=== PATIENT | male | born 1990 | race Two or more races ===

== ENCOUNTER 2016-03-18 09:34 | Inpatient (IN) | payer BC ==
[2016-03-18] VITALS (10 sets, daily range): BP systolic 117–156; BP diastolic 50–77
[~2016-03-18] VITALS: Ht 175.3 cm; Wt 81.6 kg
[2016-03-18] MEDS ORDERED: NKM (09:50)
[2016-03-18] MEDS ORDERED: Ketorolac 30mg Inj IV ONE (10:30)
[2016-03-18] MEDS ORDERED: Tubing IV Cassette IV ONE (10:35)
--- NOTE | 2016-03-18 10:36 | Emergency Room Report ---
History of Present Illness General Chief Complaint: Abdominal Pain Source: Patient Present Illness HPI Patient presents with complaints of right lower quadrant abdominal pain Ongoing for the past 2 hours Patient reports waking up this morning to the sharp pain 8/10 Denies any blood in the urine denies any chest pain or shortness of breath there is a flank component with this as well Denies any fevers denies any recent trauma Does not associate the pain with position Allergies: Coded Allergies: No Known Allergies (Unverified , 03/18/16) Patient History Past Medical History: see triage record Pertinent Family History: none Reviewed Nursing Documentation: PMH: Agreed, PSxH: Agreed Nursing Documentation-PM Past Medical History: No Stated History Review of Systems All Other Systems: negative except mentioned in HPI Physical Exam Vital Signs Date Time Temp Pulse Resp B/P Pulse Ox O2 Delivery O2 Flow Rate FiO2 03/18/16 09:46 98.2 84 18 130/72 100 Room Air Sp02 EP Interpretation: reviewed, normal General Appearance: well appearing, no apparent distress Head: normocephalic, atraumatic Eyes: bilateral eye EOMI, bilateral eye PERRL ENT: hearing grossly normal, normal pharynx, TMs + canals normal, uvula midline Neck: full range of motion, supple, no meningismus, no bony tend Respiratory: lungs clear, normal breath sounds, no rhonchi, no respiratory distress, no retraction, no accessory muscle use Cardiovascular #1: normal peripheral pulses, regular rate, rhythm, no edema, no gallop, no JVD, no murmur Gastrointestinal: normal bowel sounds, soft, no mass, no organomegaly, non- distended, no guarding, no hernia, no pulsatile mass, no rebound, other - Tender on that right lower quadrant Genitourinary: no CVA tenderness Musculoskeletal: normal inspection Neurologic: oriented x3, responsive, oxygen tank filler III-XII nml as tested, motor strength/ tone normal, sensory intact Psychiatric: mood/affect normal Skin: normal color, no rash, warm/dry, palpation normal Lymphatic: normal inspection, no adenopathy Medical Decision Making Diagnostic Impression: Primary Impression: Acute appendicitis ER Course With the history exam and presentation, multiple differentials considered, including but not limited to appendicitis, gastritis, cholecystitis, diverticulitis Patient's witlessly count is mildly elevated CT scan at this time did reveal evidence of likely early appendicitis Patient has been provided with IV antibiotics further hydration N.p.o. status and admitted for further care Labs Test 03/18/16 10:25 White Blood Count 13.4 K/UL (4.8-10.8) Red Blood Count 6.04 M/UL (4.70-6.10) Hemoglobin 13.8 G/DL (14.2-18.0) Hematocrit 44.7 % (42.0-52.0) Mean Corpuscular Volume 74 FL (80-99) Mean Corpuscular Hemoglobin 22.8 PG (27.0-31.0) Mean Corpuscular Hemoglobin Concent 30.8 G/DL (32.0-36.0) Red Cell Distribution Width 13.1 % (11.6-14.8) Platelet Count 295 K/UL (150-450) Mean Platelet Volume 6.5 FL (6.5-10.1) Neutrophils (%) (Auto) 83.0 % (45.0-75.0) Lymphocytes (%) (Auto) 9.1 % (20.0-45.0) Monocytes (%) (Auto) 6.8 % (1.0-10.0) Eosinophils (%) (Auto) 0.7 % (0.0-3.0) Basophils (%) (Auto) 0.4 % (0.0-2.0) Urine Color Pale yellow Urine Appearance Clear Urine pH 6 (4.5-8.0) Urine Specific [place] 1.015 (1.005-1.035) Urine Protein Negative (NEGATIVE) Urine Glucose (UA) Negative (NEGATIVE) Urine Ketones 2+ (NEGATIVE) Urine Occult Blood Negative (NEGATIVE) Urine Nitrite Negative (NEGATIVE) Urine Bilirubin Negative (NEGATIVE) Urine Urobilinogen Normal MG/DL (0.0-1.0) Urine Leukocyte Esterase Negative (NEGATIVE) Sodium Level 140 mEQ/L (135-145) Potassium Level 4.2 mEQ/L (3.4-4.9) Chloride Level 99 mEQ/L (98-107) Carbon Dioxide Level 26 mEQ/L (20-30) Anion Gap 15 (5-15) Blood Urea Nitrogen 12 mg/dL (7-23) Creatinine 1.1 mg/dL (0.7-1.2) Estimat Glomerular Filtration Rate > 60 mL/min (>60) Glucose Level 104 mg/dL (74-106) Calcium Level 9.2 mg/dL (8.6-10.2) Total Bilirubin 0.4 mg/dL (0.0-1.2) Aspartate Amino Transf (AST/SGOT) 28 U/L (5-40) Alanine Aminotransferase (ALT/SGPT) 21 U/L (3-41) Alkaline Phosphatase 44 U/L (40-129) Total Protein 6.8 g/dL (6.6-8.7) Albumin 4.4 g/dL (3.5-5.2) Globulin 2.4 g/dL Albumin/Globulin Ratio 1.8 (1.0-2.7) Lipase 26 U/L (< 60) CT/MRI/US Diagnostic Results CT/MRI/US Diagnostic Results : Impression CT abdomen pelvis: Findings in line with early appendicitis Last Vital Signs Date Time Temp Pulse Resp B/P Pulse Ox O2 Delivery O2 Flow Rate FiO2 03/18/16 09:46 98.2 84 18 130/72 100 Room Air Status: improved Disposition: ADMITTED INPATIENT Condition: Serious Referrals: NOT CHOSEN JHONNY/,REFERRING (PCP) MAO LONDONO D.O. Mar 18, 2016 10:36
[2016-03-18 10:40] LABS: APPEARANCE,URINE CLEAR; KETONES,URINE 2+ (NEGATIVE); LEUKOCYTE ESTERASE ,URINE NEGATIVE (NEGATIVE); NITRITE,URINE NEGATIVE (NEGATIVE); PH,URINE 6 (4.5-8.0); PROTEIN,URINE NEGATIVE (NEGATIVE); UROBILINOGEN,URINE NORMAL MG/DL (0.0-1.0)
[2016-03-18 10:48] LABS: BASOPHILS % (AUTO) 0.4 % (0.0-2.0); EOSINOPHILS % (AUTO) 0.7 % (0.0-3.0); LYMPHOCYTES % (AUTO) 9.1 % (20.0-45.0); MEAN CORPUSCULAR HEMOGLOBIN 22.8 PG (27.0-31.0); MEAN CORPUSCULAR HGB CONC 30.8 G/DL (32.0-36.0); MEAN CORPUSCULAR VOLUME 74 FL (80-99); MEAN PLATELET VOLUME 6.5 FL (6.5-10.1); MONOCYTES % (AUTO) 6.8 % (1.0-10.0); PLATELET COUNT 295 K/UL (150-450); RED BLOOD COUNT 6.04 M/UL (4.70-6.10); RED CELL DISTRIBUTION WIDTH 13.1 % (11.6-14.8); WHITE BLOOD COUNT 13.4 K/UL (4.8-10.8)
[2016-03-18 11:00] LABS: ALANINE AMINOTRANSFERASE 21 U/L (3-41); ALBUMIN/GLOBULIN RATIO 1.8 (1.0-2.7); ANION GAP 15 (5-15); ASPARTATE AMINO TRANSFERASE 28 U/L (5-40); CALCIUM 9.2 mg/dL (8.6-10.2); CARBON DIOXIDE 26 mEQ/L (20-30); CHLORIDE 99 mEQ/L (98-107); CREATININE 1.1 mg/dL (0.7-1.2); GLOMERULAR FILTRATION RATE > 60 mL/min (>60); HEMOLYSIS 5; LIPASE 26 U/L (< 60); POTASSIUM 4.2 mEQ/L (3.4-4.9); SODIUM 140 mEQ/L (135-145); TOTAL PROTEIN 6.8 g/dL (6.6-8.7)
--- NOTE | 2016-03-18 11:49 | Diagnostic Imaging Report ---
Indication: Abdominal pain Technique: Continuous helical transaxial imaging of the abdomen and pelvis was obtained from the lung bases to the pubic symphysis during intravenous contrast administration. Coronal 2-D reformats were also obtained. Study obtained in a Siemens sensation [address] Total Dose length Product (DLP): [address] Dose Index Volume (CTDIvol): 16 mGy Comparison: None Findings: The lung bases are clear. There are some breathing motion artifact present. No abnormalities of the gallbladder, liver or spleen, pancreas, or kidneys identified. There is no adrenal mass identified. The appendix is retrocecal. There is some enhancement of the wall the appendix. Periappendiceal fat appears abnormal suggestive of inflammation. Appendiceal diameter is only minimally enlarged measuring about 7-8 mm. Findings are suspicious for early acute appendicitis ( CTs images 51 through 54, series 3). There is no abscess. There is no free fluid identified. Impression: Suspected acute early appendicitis. The appendix is retrocecal. Breathing motion artifacts. The CT scanner at [facility] is accredited by the [employer] and the scans are performed using protocols designed to limit radiation exposure to as low as reasonably achievable to attain images of sufficient resolution adequate for diagnostic evaluation.
[2016-03-18] MEDS ORDERED: Zosyn 3.375gm inj ONE (12:00)
[2016-03-18] MEDS ORDERED: NS 110 ML ONE (12:00)
[2016-03-18] MEDS ORDERED: Piperacillin/Tazobactam 3.375 GM in NS 110 ML IVPB ONE (12:00)
[2016-03-18] MEDS ORDERED: HYDROmorphone 1mg/ml Carpuject IVP PRN ×2 (13:45→18:00)
[2016-03-18] MEDS ORDERED: Hydromorphone 0.5mg/0.5ml inj IVP PRN ×3 (13:45→18:00)
--- NOTE | 2016-03-18 13:50 | History and Physical ---
History of Present Illness General Date patient seen: Mar 18, 2016 Time patient seen: 13:45 Reason for Hospitalization: Abdominal Pain Present Illness HPI 25 yo M presents with complaints of right lower quadrant abdominal pain, ongoing for the past 2 hours. Patient reports waking up this morning to the sharp pain, 8/10, located in LLQ. Denies any blood in the urine denies any chest pain or shortness of breath. Denies any fevers denies any recent trauma. Does not associate the pain with position. Allergies: Coded Allergies: No Known Allergies (Unverified , 03/18/16) Medication History Scheduled No Known Medications* (NKM - No Known Medications*), 0 ., (Reported) Scheduled PRN Acetaminophen With Codeine (T#3) (Tylenol #3 Tab*), 1 TAB ORAL Q4H PRN for For Pain, (Reported) Acetaminophen With Codeine (T#3) (Tylenol #3 Tab*), 2 TAB ORAL Q4HR PRN for For Pain, (Reported) Patient History Healthcare decision maker Resuscitation status Advanced Directive on File Past Medical/Surgical History Past Medical/Surgical History: (1) No pertinent past medical history (2) No significant past medical history (3) No significant past surgical history Family History Family History: Patient reports no known family medical history. Social History Social History: (1) No significant social history Review of Systems All Other Systems: negative except mentioned in HPI Physical Exam General Appearance: no apparent distress, alert HEENT: normocephalic, atraumatic, anicteric, mucous membranes moist, PERRL, EOMI, pharynx normal, no JVD Neck: non-tender, supple Respiratory/Chest: lungs clear, normal breath sounds, no respiratory distress, no accessory muscle use Cardiovascular/Chest: normal peripheral pulses, normal rate, regular rhythm Abdomen: normal bowel sounds, non tender, soft, no mass, tender - RLQ Extremities: non-tender, normal inspection Skin Exam: warm/dry 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, no motor/sensory deficits, alert Musculoskeletal: normal muscle bulk Last 24 Hour Vital Signs Date Time Temp Pulse Resp B/P Pulse Ox O2 Delivery O2 Flow Rate FiO2 03/18/16 12:15 97.2 67 16 125/62 99 Room Air 03/18/16 11:00 98.3 03/18/16 09:46 98.2 84 18 130/72 100 Room Air Laboratory Tests Test 03/18/16 10:25 White Blood Count 13.4 K/UL (4.8-10.8) H Red Blood Count 6.04 M/UL (4.70-6.10) Hemoglobin 13.8 G/DL (14.2-18.0) L Hematocrit 44.7 % (42.0-52.0) Mean Corpuscular Volume 74 FL (80-99) L Mean Corpuscular Hemoglobin 22.8 PG (27.0-31.0) L Mean Corpuscular Hemoglobin Concent 30.8 G/DL (32.0-36.0) L Red Cell Distribution Width 13.1 % (11.6-14.8) Platelet Count 295 K/UL (150-450) Mean Platelet Volume 6.5 FL (6.5-10.1) Neutrophils (%) (Auto) 83.0 % (45.0-75.0) H Lymphocytes (%) (Auto) 9.1 % (20.0-45.0) L Monocytes (%) (Auto) 6.8 % (1.0-10.0) Eosinophils (%) (Auto) 0.7 % (0.0-3.0) Basophils (%) (Auto) 0.4 % (0.0-2.0) Urine Color Pale yellow Urine Appearance Clear Urine pH 6 (4.5-8.0) Urine Specific [place] 1.015 (1.005-1.035) Urine Protein Negative (NEGATIVE) Urine Glucose (UA) Negative (NEGATIVE) Urine Ketones 2+ (NEGATIVE) H Urine Occult Blood Negative (NEGATIVE) Urine Nitrite Negative (NEGATIVE) Urine Bilirubin Negative (NEGATIVE) Urine Urobilinogen Normal MG/DL (0.0-1.0) Urine Leukocyte Esterase Negative (NEGATIVE) Sodium Level 140 mEQ/L (135-145) Potassium Level 4.2 mEQ/L (3.4-4.9) Chloride Level 99 mEQ/L (98-107) Carbon Dioxide Level 26 mEQ/L (20-30) Anion Gap 15 (5-15) Blood Urea Nitrogen 12 mg/dL (7-23) Creatinine 1.1 mg/dL (0.7-1.2) Estimat Glomerular Filtration Rate > 60 mL/min (>60) Glucose Level 104 mg/dL (74-106) Calcium Level 9.2 mg/dL (8.6-10.2) Total Bilirubin 0.4 mg/dL (0.0-1.2) Aspartate Amino Transf (AST/SGOT) 28 U/L (5-40) Alanine Aminotransferase (ALT/SGPT) 21 U/L (3-41) Alkaline Phosphatase 44 U/L (40-129) Total Protein 6.8 g/dL (6.6-8.7) Albumin 4.4 g/dL (3.5-5.2) Globulin 2.4 g/dL Albumin/Globulin Ratio 1.8 (1.0-2.7) Lipase 26 U/L (< 60) Height (Feet): 5 Height (Inches): 9.00 Weight (Pounds): 180 Medications Current Medications Medications (Trade) Dose Ordered Sig/[place] Route PRN Reason Start Time Stop Time Status Last Admin Dose Admin Acetaminophen (Tylenol) 650 mg Q4H PRN ORAL fever 03/18/16 13:45 04/17/16 13:44 UNV Dextrose STAT PRN IV Hypoglycemia 03/18/16 13:45 04/17/16 13:44 UNV Dextrose/Sodium Chloride (D5 0.45% NS) 1,000 ml @ 75 mls/hr [id number] IV 03/18/16 14:36 04/17/16 14:35 UNV Hydromorphone HCl (Dilaudid) 0.5 mg EVERY 4 HOURS PRN IVP For Pain 03/18/16 13:45 03/25/16 13:44 UNV Hydromorphone HCl (Dilaudid) 1 mg EVERY 4 HOURS PRN IVP Severe Pain (Pain Scale 7-10) 03/18/16 13:45 03/25/16 13:44 UNV Ondansetron HCl (Zofran) 4 mg Q6H PRN IVP Nausea & Vomiting 03/18/16 13:45 04/17/16 13:44 UNV Piperacillin Sod/ Tazobactam Sod/ Dextrose (Zosyn/D5W) 110 ml @ 27.5 mls/hr EVERY 8 HOURS IVPB 03/18/16 14:00 03/23/16 13:59 UNV Prochlorperazine (Compazine) 10 mg Q6H PRN IVP Nausea & Vomiting 03/18/16 13:45 04/17/16 13:44 UNV Assessment/Plan Problem List: (1) Acute appendicitis ICD Codes: K35.80 - Unspecified acute appendicitis SNOMED: [id number] Status: progressing Assessment/Plan pain control with Dil IV Tylenol prn fever npo D5 1/2 ns zosyn Gen surg c/s for appendectomy SCD admit inpt med surg Raven Vargas M.D. Mar 18, 2016 13:49
[2016-03-18] MEDS ORDERED: Propofol 10mg/ml 20ml IV ONE ×2 (14:03→16:45)
[2016-03-18] MEDS ORDERED: D5 1/2NS 1,000 ML IV SCH (14:36)
[2016-03-18] MEDS ORDERED: Surgicel 4in x 8in TOPIC ONE (16:22)
[2016-03-18] MEDS ORDERED: Bupivacaine w/Epi 0.25% 30ml Vial INJ ONE (16:22)
--- NOTE | 2016-03-18 16:31 | Pre-Procedure Note/Attestation ---
Pre-Procedure Note/Attestation Complete Prior to Procedure Procedure Narrative: laparoscopic appendectomy Indications for Procedure Pre-Operative Diagnosis: acute appendicitis Attestation I attest that I discussed the nature of the procedure; its benefits; risks and complications; and alternatives (and the risks and benefits of such alternatives ), prior to the procedure, with the patient (or the patient's legal site safety representative). I attest that, if there was a reasonable possibility of needing a blood transfusion, the patient (or the patient's legal site safety representative) was given the [facility] standardized written summary, pursuant to the Art Cutler Blood Safety Act ([place] Health and Safety Code # 1645, as amended). I attest that I re-evaluated the patient just prior to the surgery and that there has been no change in the patient's H&P, except as documented below: GARCIA GAMEZ Mar 18, 2016 16:31
[2016-03-18] MEDS ORDERED: Succinylcholine 20mg/ml 10ml vial ONE (16:45)
[2016-03-18] MEDS ORDERED: Glycopyrrolate 0.2mg/ml 1ml Vial ONE (16:45)
[2016-03-18] MEDS ORDERED: Neostigmine 1mg/ml 10ml Inj ONE (16:45)
[2016-03-18] MEDS ORDERED: Sterile Water Irrig 1000ml IRRIG ONE (16:45)
[2016-03-18] MEDS ORDERED: NS Irrig 1000ml IRRIG ONE (16:45)
[2016-03-18] MEDS ORDERED: Midazolam 2mg/2ml Inj ONE (16:45)
[2016-03-18] MEDS ORDERED: NS Irrig 1000ml ONE (16:45)
[2016-03-18] MEDS ORDERED: fentaNYL 100 mcg/2 mL IV ONE (16:45)
[2016-03-18] MEDS ORDERED: Ketorolac 30mg Inj ONE (16:45)
[2016-03-18] MEDS ORDERED: Zemuron 50mg/5ml Inj IV ONE (16:45)
[2016-03-18] MEDS ORDERED: LR 1000ml ONE (16:45)
[2016-03-18] MEDS ORDERED: LR 1000ml 1,000 ML IVLG SCH (17:31)
--- NOTE | 2016-03-18 17:31 | Anethesia Preoperative Eval ---
Anesthesia Pre-op PMH/ROS General Date of Evaluation: Mar 18, 2016 Time of Evaluation: 16:40 Anesthesiologist: Emory ASA Score: ASA 2 Mallampati Score Class I : Soft palate, uvula, fauces, pillars visible Class II: Soft palate, uvula, fauces visible Class III: Soft palate, base of uvula visible Class IV: Only hard plate visible Mallampati Classification: Class II Surgeon: Joslyn Diagnosis: Acute appendicitis Surgical Procedure: Laparoscopic appendectomy Anesthesia History: none Family History: no anesthesia problems Allergies: Coded Allergies: No Known Allergies (Unverified , 03/18/16) Past Medical History Cardiovascular: Denies: CAD, HTN, [place], arrhythmia, other, valve dz Pulmonary: Denies: COPD, MIRNA, asthma, other Gastrointestinal/Genitourinary: Denies: CRI, ESRD, GERD, other Neurologic/Psychiatric: Denies: CVA, TIA, dementia, depression/anxiety, other Endocrine: Denies: DM, hypothyroidism, other, steroids HEENT: Denies: [place] (L), [place] (R), cataract (L), cataract (R), glaucoma, other Hematology/Immune: Denies: DVT, anemia, bleeding disorder, other Musculoskeletal/Integumentary: Denies: DDD, DJD, OA, RA, edema, other PMH Narrative: admitted for acute abdominal pain nausea vomiting PSxH Narrative: None Anesthesia Pre-op Phys. Exam Physician Exam Last Vital Signs Date Time Temp Pulse Resp B/P Pulse Ox O2 Delivery O2 Flow Rate FiO2 03/18/16 16:00 97.0 50 20 117/51 98 Room Air Constitutional: NAD Neurologic: CN 2-12 intact Cardiovascular: RRR, no M/R/G Respiratory: CTA Gastrointestinal: other - tender on palpation Airway Exam Mallampati Score: Class II MO: full Neck: flexivble ROM: full Teeth: intact Dentures: no lower, no upper Anesthesia Pre-op A/P Labs Hematology Test 03/18/16 10:25 White Blood Count 13.4 K/UL (4.8-10.8) H Red Blood Count 6.04 M/UL (4.70-6.10) Hemoglobin 13.8 G/DL (14.2-18.0) L Hematocrit 44.7 % (42.0-52.0) Mean Corpuscular Volume 74 FL (80-99) L Mean Corpuscular Hemoglobin 22.8 PG (27.0-31.0) L Mean Corpuscular Hemoglobin Concent 30.8 G/DL (32.0-36.0) L Red Cell Distribution Width 13.1 % (11.6-14.8) Platelet Count 295 K/UL (150-450) Mean Platelet Volume 6.5 FL (6.5-10.1) Neutrophils (%) (Auto) 83.0 % (45.0-75.0) H Lymphocytes (%) (Auto) 9.1 % (20.0-45.0) L Monocytes (%) (Auto) 6.8 % (1.0-10.0) Eosinophils (%) (Auto) 0.7 % (0.0-3.0) Basophils (%) (Auto) 0.4 % (0.0-2.0) Chemistry Test 03/18/16 10:25 Sodium Level 140 mEQ/L (135-145) Potassium Level 4.2 mEQ/L (3.4-4.9) Chloride Level 99 mEQ/L (98-107) Carbon Dioxide Level 26 mEQ/L (20-30) Anion Gap 15 (5-15) Blood Urea Nitrogen 12 mg/dL (7-23) Creatinine 1.1 mg/dL (0.7-1.2) Estimat Glomerular Filtration Rate > 60 mL/min (>60) Glucose Level 104 mg/dL (74-106) Calcium Level 9.2 mg/dL (8.6-10.2) Total Bilirubin 0.4 mg/dL (0.0-1.2) Aspartate Amino Transf (AST/SGOT) 28 U/L (5-40) Alanine Aminotransferase (ALT/SGPT) 21 U/L (3-41) Alkaline Phosphatase 44 U/L (40-129) Total Protein 6.8 g/dL (6.6-8.7) Albumin 4.4 g/dL (3.5-5.2) Globulin 2.4 g/dL Albumin/Globulin Ratio 1.8 (1.0-2.7) Lipase 26 U/L (< 60) Risk Assessment & Plan Assessment: ASA 2 Plan: GA with ETT Status Change Before Surgery: No Pre-Antibiotics Drug: Ancef 2gr. Given Within 1 Hr of Incision: Yes Time Given: 17:02 JOSÉ MIGUEL RAMOS M.D. Mar 18, 2016 17:31
[2016-03-18] MEDS ORDERED: Metoclopramide 10mg/2ml Inj IVP PRN (17:45)
[2016-03-18] MEDS ORDERED: DiphenhydrAMINE 50mg/ml Inj IVP PRN ×2 (17:45→18:00)
[2016-03-18] MEDS ORDERED: Meperidine 25mg/ml Inj IV PRN (17:45)
[2016-03-18] MEDS ORDERED: Ketorolac 30mg Inj IV PRN (17:45)
--- NOTE | 2016-03-18 17:49 | Brief Operative Note ---
Immediate Post Operative Note Operative Note Pre-op Diagnosis: acute appendicitis Procedure: laparoscopic appendectomy Post-op Diagnosis: same as pre-op Surgeon: leidy Anesthesiologist: hui Anesthesia: general Specimen: yes Complications: none Condition: stable Estimated Blood Loss: minimal Drains: none Implant(s) used?: No GARCIA GAMEZ Mar 18, 2016 17:49
[2016-03-18] MEDS ORDERED: Ketorolac 30mg Inj IM PRN (18:00)
[2016-03-18] MEDS ORDERED: Norco 5mg/325mg tab ORAL PRN (18:00)
--- NOTE | 2016-03-18 18:06 | Immediate Post-Op Evaluation ---
Immediate Post-Op Evalulation Immediate Post-Op Evalulation Procedure: Laparoscopic appendectomy Date of Evaluation: Mar 18, 2016 Time of Evaluation: 18:05 IV Fluids: 1000 Blood Products: none Estimated Blood Loss: min Urinary Output: 80 Blood Pressure Systolic: 120 Blood Pressure Diastolic: 56 Pulse Rate: 84 Respiratory Rate: 20 O2 Sat by Pulse Oximetry: 99 Temperature (Fahrenheit): 97.6 Pain Score (1-10): 1 Nausea: No Vomiting: No Complications none Patient Status: reacts, patent, extubated, none Hydration Status: adequate JOSÉ MIGUEL RAMOS M.D. Mar 18, 2016 18:06
[2016-03-18] MEDS ORDERED: Piperacillin/Tazobactam 3.375 GM in D5W 110 ML IVPB SCH (20:00)
[2016-03-18] MEDS ORDERED: cefOXitin Sod 1 GM in D5W 55 ML IV SCH (20:30)
[2016-03-18] MEDS: D5 1/2NS w/KCl 20mEq 1,000 ML IV SCH (21:16)
[2016-03-18] MEDS: cefOXitin Sod 1 GM in D5W 55 ML IV SCH (23:13)
[2016-03-18] MEDS: Norco 10mg/325mg tab ORAL PRN (23:58)
[2016-03-19] VITALS: BP 116/62
--- NOTE | 2016-03-19 02:27 | Operative Note - Dictated ---
DATE OF OPERATION: 03/18/2016 SURGEON: Holland Jorgensen M.D. ORDNANCE EQUIPMENT WORKER SURGEON: Jacinto Guaman M.D. ANESTHESIOLOGIST: Jamel Cat M.D. ANESTHESIA: General endotracheal tube. PREOPERATIVE DIAGNOSIS: Acute appendicitis. POSTOPERATIVE DIAGNOSIS: Acute appendicitis. NAME OF THE OPERATION: Laparoscopic appendectomy. FINDINGS AND INDICATIONS: The patient is a 25-year-old male, originally from [place], who comes to the emergency room from [place] the [address] [place] he [place], with complaints of initial abdominal pain in the mid abdomen, migrating to the right lower quadrant over the course of this morning since 0530 a.m. He was evaluated by the emergency room physician for right lower quadrant tenderness and CAT scan of the abdomen revealed changes consistent with acute appendicitis. As the primary operation a thickened nonperforated appendix was found. No obvious nor any inflammatory fluid with early acute appendicitis, which was taken care of relatively easy with laparoscopic appendectomy. There was a small umbilical hernia, which was repaired through the same infraumbilical orifice at the end of the procedure. DESCRIPTION OF PROCEDURE: With the patient lying in the supine position on the operating table, under general anesthesia, the entire abdominal region, prepped and draped in usual sterile fashion with Betadine. An infraumbilical stab incision was made. The Veress needle was introduced and 3.5 liters of CO2 insufflated. The incision was then enlarged and a 5 mm trocar was placed through which a laparoscope was placed visualizing the above findings. A separate suprapubic 1.2 cm trocar was placed and a 5 mm trocar in the left upper quadrant through which the appendix was grasped, and it was placed on traction and a careful dissection was undertaken around the base of the appendix and the mesoappendix, which was carefully mobilized and a window created in the lateral aspect of the appendix. The Endo-KAYDEN staple device was then used to transect it. At this point, the mesoappendix was also carefully dissected free off of the cecum and the Endo-KAYDEN staple was also used to transect it with excellent hemostasis. The area was irrigated. Hemostasis was double checked which was adequate with the cautery, and at this point making sure there was no further bleeding and having irrigated the entire right gutter, right lower quadrant and hepatic area, the CO2 was deflated. The trocars were removed and the incision was closed with 0 Vicryl fascial sutures, except for the small umbilical hernia with trocars at the place, which was closed with a figure-of- eight 2-0 Ethibond suture. Hemostasis was excellent. Subcutaneous tissues were approximated with 3-0 Vicryl suture, and skin with 4-0 Vicryl subcuticular sutures and Steri-Strips. The suprapubic wound was also closed on the fascia with 0 Vicryl suture. Sterile dressings with tincture of benzoin, Steri-Strips, 2 x 2's, and Tegaderm were placed. The patient tolerated the procedure well. Estimated blood loss was less than 10 mL. Sponge and needle counts were correct. He went to the recovery room in stable condition. Holland Jorgensen M.D. DR: DANNIELLE/sebastian JOB#: [id number] CC:
[2016-03-19 04:00] VITALS: BP 119/50
[2016-03-19] MEDS: cefOXitin Sod 1 GM in D5W 55 ML IV SCH ×2 (04:28→10:42)
[2016-03-19] MEDS: D5 1/2NS w/KCl 20mEq 1,000 ML IV SCH (04:29)
[2016-03-19] MEDS: Norco 10mg/325mg tab ORAL PRN ×2 (04:33→09:26)
[2016-03-19 07:07] LABS: BASOPHILS % (AUTO) 0.6 % (0.0-2.0); EOSINOPHILS % (AUTO) 1.8 % (0.0-3.0); LYMPHOCYTES % (AUTO) 27.6 % (20.0-45.0); MEAN CORPUSCULAR HEMOGLOBIN 23.5 PG (27.0-31.0); MEAN CORPUSCULAR HGB CONC 31.7 G/DL (32.0-36.0); MEAN CORPUSCULAR VOLUME 74 FL (80-99); MEAN PLATELET VOLUME 6.8 FL (6.5-10.1); NEUTROPHILS % (AUTO) 60.1 % (45.0-75.0); PLATELET COUNT 264 K/UL (150-450); RED BLOOD COUNT 4.97 M/UL (4.70-6.10); RED CELL DISTRIBUTION WIDTH 13.4 % (11.6-14.8); WHITE BLOOD COUNT 7.5 K/UL (4.8-10.8)
[2016-03-19 07:30] LABS: ALANINE AMINOTRANSFERASE 15 U/L (3-41); ALBUMIN/GLOBULIN RATIO 1.5 (1.0-2.7); ANION GAP 12 (5-15); ASPARTATE AMINO TRANSFERASE 18 U/L (5-40); CALCIUM 8.4 mg/dL (8.6-10.2); CARBON DIOXIDE 25 mEQ/L (20-30); CHLORIDE 103 mEQ/L (98-107); CREATININE 1.2 mg/dL (0.7-1.2); GLOMERULAR FILTRATION RATE > 60 mL/min (>60); HEMOLYSIS 1; POTASSIUM 3.9 mEQ/L (3.4-4.9); SODIUM 140 mEQ/L (135-145); TOTAL PROTEIN 5.4 g/dL (6.6-8.7)
[2016-03-19 08:00] VITALS: BP 109/59
--- NOTE | 2016-03-19 09:43 | General Progress Note ---
Progress Note Progress Note Afebrile, pain OK, tolerating liquids OK. Lungs:clear Abdomen: soft, wounds clean. WBC 7000 Imp: stable s/p lap appendectomy Plan; home later today, Tylenol #3 written #30 Office f/U Dr Guaman next Wednesday GARCIA GAMEZ Mar 19, 2016 09:43
[2016-03-19] MEDS ORDERED: ACETAMINOPHEN-1 EAC1 ORAL ×2 (10:23)
--- NOTE | 2016-03-19 11:04 | 48 Hour Post Anesthesia Eval ---
Post Anesthesia Evaluation Procedure: Laparoscopic appendectomy Date of Evaluation: Mar 19, 2016 Time of Evaluation: 07:10 Blood Pressure Systolic: 119 0: 50 Pulse Rate: 50 Respiratory Rate: 18 Temperature (Fahrenheit): 97.9 O2 Sat by Pulse Oximetry: 97 Airway: patent Nausea: No Vomiting: No Pain Intensity: 2 Hydration Status: adequate Cardiopulmonary Status: at baseline Mental Status/LOC: patient returned to baseline Post-Anesthesia Complications: 0 Follow-up care needed: N/A - further care as per primary team JEFFREY BAUER M.D. Mar 19, 2016 11:04
[2016-03-19 12:00] VITALS: BP 126/59
--- NOTE | 2016-03-19 14:16 | Discharge Summary ---
Discharge Summary Hospital Course Date of Admission Mar 18, 2016 at 12:18 Date of Discharge 03/19/16 Admitting Diagnosis APPENDICITIS HPI Carl Loo is a 25 year old male who was admitted on Mar 18, 2016 at 12:18 for Appendicitis with LLQ pain Consultations Gen Surg, Dr. Jorgensen Procedures appendectomy Hospital Course admit inpt med surg pain controlled with Dil IV Tylenol prn fever npo--> clears D5 1/2 ns zosyn Gen surg c/s for lap appendectomy SCD Discharge Medications Continued Medications: Acetaminophen With Codeine (T#3) (Tylenol #3 Tab*) Y Tab 1 TAB ORAL Q4H PRN for For Pain, #30 TAB Acetaminophen With Codeine (T#3) (Tylenol #3 Tab*) Y Tab 2 TAB ORAL Q4HR PRN for For Pain, #30 TAB Discharge Condition Upon Discharge: stable Discharge Disposition Patient was discharged to Home (01) Discharge Diagnoses: (1) Acute appendicitis Raven Vargas M.D. Mar 19, 2016 14:16
== END 2016-03-19 15:00 | disposition home or self-care (01) | DRG 343 ==
LOC: ENRESERVTM → ENRESERV → ENRESERVDT → EMR 10:24 → 4W 12:18 → EDBEDREQ 12:31 → 4W 14:09 → 3E 20:06
PROC: 0DTJ4ZZ Resection of Appendix, Percutaneous Endoscopic Approach (ICD-10-PCS; principal; 2016-03-18 14:30)
DX: K35.80 Unspecified acute appendicitis (principal)
CPT/HCPCS: 36415; 74177; 80053; 81003; 83690; 85025; 94003; 94150; J2250; J2405; J2710